=== PATIENT | male | born 1975 | race African-American/Black ===

== ENCOUNTER 2017-03-10 00:26 | Emergency (ER) | payer SELFPAY ==
[~2017-03-10] VITALS: Ht 177.8 cm; Wt 63.6 kg
[2017-03-10 02:45] VITALS: BP 132/78
== END 2017-03-10 02:56 | disposition home or self-care (01) ==
LOC: EMS 00:28
DX: S60.212A Contusion of left wrist, initial encounter (principal); F17.210 Nicotine dependence, cigarettes, uncomplicated; X58.XXXA Exposure to other specified factors, initial encounter; Y93.89 Activity, other specified; Y92.89 Other specified places as the place of occurrence of the external cause; Y99.8 Other external cause status
CPT/HCPCS: 99284